=== PATIENT | male | born 1995 | race Caucasian/White ===

== ENCOUNTER 2024-02-20 06:42 | Emergency (ER) | payer SELFPAY ==
[2024-02-20] MEDS ORDERED: CEPHALEXIN 250 MG CAP ONE (07:14)
[2024-02-20] MEDS ORDERED: SMZ./TMP. 800/160 MG TABLET ONE (07:15)
--- NOTE | 2024-02-20 07:17 | EDPHYS ---
Physician Documentation [facility] Name: Hebert Hebert Age: 29 yrs Sex: Male : 1995 Arrival Date: 02/20/2024 Time: 06:42 Bed 5 Private MD: ED Physician Regis Jackson HPI: 02/19 06:48 This 29 yrs old Male presents to ER via Unassigned with complaints of Facial sp4 Swelling, Eye Swelling. 07:14 The patient presents with cellulitis of the left eye, the patient presents with a rn swollen area of the left eye. Onset: The symptoms/episode began/occurred yesterday. Associated signs and symptoms: Pertinent positives: erythema, swelling, Pertinent negatives: fever. Severity of symptoms: At their worst the symptoms were moderate, in the emergency department the symptoms are unchanged. The patient has not experienced similar symptoms in the past. Patient reports left eye swelling and redness that began yesterday, progressed this morning. No fever. No trauma or damage. Not splashed by any chemical. Denies any vision changes. Has never happened before. No rash elsewhere.. Historical: - Allergies: 07:03 No Known Allergies; ss - Home Meds: 07:03 None [Active]; ss - PMHx: 07:03 None; ss - PSHx: 07:03 None; ss - Immunization history:: Client reports having NOT received the Covid vaccine. - Infectious Disease History:: Denies. - Social history:: Smoking status: Patient denies any tobacco usage or history of. - Family history:: not pertinent. - Hospitalizations: : No recent hospitalization is reported. ROS: 07:14 Constitutional: Negative for fever, chills, and weight loss, Eyes: Positive for left rn periorbital rash Skin: No urticaria elsewhere Exam: 07:14 Constitutional: This is a well developed, well nourished patient who is awake, alert, rn and in no acute distress. Head/Face: Normocephalic, atraumatic. Eyes: Pupils equal round and reactive to light, extra-ocular motions intact. Sclera normal. No foreign body. Left periorbital area with erythema and maculopapular rash with warmth. Vital Signs: 07:01 BP 134 / 84; Pulse 80; Resp 16; Temp 98(TE); Pulse Ox 98% on R/A; Weight 108.86 kg; ss Height 5 ft. 9 in. ; Pain 0/10; 07:01 Body Mass Index 35.44 (108.86 kg, 175.26 cm) ss 07:01 Pain Scale: Adult ss MDM: 07:00 Patient medically screened. rn 07:14 Differential diagnosis: cellulitis. Data reviewed: vital signs, nurses notes, and as a rn result, I will discharge patient. Counseling: I had a detailed discussion with the patient and/or guardian regarding the historical points, exam findings, and any diagnostic results supporting the discharge/admit diagnosis, the need for outpatient follow up, to return to the emergency department if symptoms worsen or persist or if there are any questions or concerns that arise at home. Special discussion: I discussed with the patient/guardian in detail that at this point there is no indication for admission to the hospital. It is understood, however, that if the symptoms persist or worsen the patient needs to return immediately for re-evaluation. Administered Medications: 07:17 Drug: Trimethoprim-Sulfamethoxazole PO (160 mg-800 mg (DS) 1 tablet PO once Route: PO; ap3 07:33 Follow up: Response: No adverse reaction ap3 07:17 Drug: Cephalexin PO 500 mg PO once Route: PO; ap3 07:33 Follow up: Response: No adverse reaction ap3 Disposition Summary: 02/20/24 07:17 Discharge Ordered Notes: Location: Home rn Problem: new rn Symptoms: are unchanged rn Condition: Stable rn Diagnosis - Cellulitis of face rn Followup: rn - With: Private Physician - When: As needed - Reason: Recheck today's complaints, Re-evaluation by your physician Discharge Instructions: - Discharge Summary Sheet rn - Cellulitis, Adult rn Forms: - Medication Reconciliation Form rn - Antibiotic internet webmaster - Prescription Opioid Use rn - Patient Portal Instructions rn - Leadership Thank You Letter rn Prescriptions: - Cephalexin 500 mg Oral Capsule - take 1 capsule ORAL route every 12 hours for 10 days; 20 capsule; Refills: 0, rn Product Selection Permitted - Bactrim DS 800-160 mg Oral Tablet - take 1 tablet ORAL route every 12 hours for 10 days; 20 tablet; Refills: 0, rn Product Selection Permitted Signatures: Regis Jackson MD MD rn Blanchard, Shelby, RN RN ss Prokisch, Amanda, RN RN ap3 Ryan Flynn, MD sp4
--- NOTE | 2024-02-20 07:17 | ER ---
Nurse's Notes [facility] Name: Hebert Hebert Age: 29 yrs Sex: Male : 1995 Arrival Date: 02/20/2024 Time: 06:42 Bed 5 Private MD: Diagnosis: Cellulitis of face Presentation: 02/19 07:01 Chief complaint: Patient states: redness and swelling to L eye that began yesterday. ss Worse this morning. Denies fever or injury. Coronavirus screen: Client denies travel out of the [place] in the last 14 days. Ebola Screen: Patient denies exposure to infectious person. Patient denies travel to an Ebola-affected area in the 21 days before illness onset. Initial Sepsis Screen: Does the patient meet any 2 criteria? No. Patient's initial sepsis screen is negative. Does the patient have a suspected source of infection? No. Patient's initial sepsis screen is negative. Risk Assessment: Do you want to hurt yourself or someone else? Patient reports no desire to harm self or others. Onset of symptoms was February 19, 2024. 07:01 Method Of Arrival: Ambulatory ss 07:01 Acuity: JAIME 3 ss Triage Assessment: 07:03 General: Appears in no apparent distress. comfortable, Behavior is calm, cooperative. ss General: Denies fever. Pain: Denies pain. EENT: redness and swelling to L eye. Neuro: Level of Consciousness is awake, alert, obeys commands, Oriented to person, place, time, situation. Respiratory: Airway is patent Respiratory effort is even, unlabored, Respiratory pattern is regular, symmetrical. Derm: Skin is intact, is healthy with good turgor, Skin is dry, Skin is pink, warm \T\ dry. normal. Historical: - Allergies: 07:03 No Known Allergies; ss - Home Meds: 07:03 None [Active]; ss - PMHx: 07:03 None; ss - PSHx: 07:03 None; ss - Immunization history:: Client reports having NOT received the Covid vaccine. - Infectious Disease History:: Denies. - Social history:: Smoking status: Patient denies any tobacco usage or history of. - Family history:: not pertinent. - Hospitalizations: : No recent hospitalization is reported. Screenin:19 [facility] ED Fall Risk Assessment (Adult) History of falling in the last 3 months, ap3 including since admission No falls in past 3 months (0 pts) Confusion or Disorientation No (0 pts) Intoxicated or Sedated No (0 pts) Impaired Gait No (0 pts) Mobility Assist Device Used No (0 pt) Altered Elimination No (0 pt) Score/Fall Risk Level 0 - 2 = Low Risk Oriented to surroundings, Maintained a safe environment, Educated pt \T\ family on fall prevention, incl call for assistance when getting out of bed, Assessed \T\ reinforced patient's understanding of fall precautions, Provided non-skid footwear, Hourly rounding (assess needs \T\ fall precautionary measures) done, Used ambulatory aids as needed (educated on \T\ assisted with), Used gait belt as appropriate. Abuse screen: Denies threats or abuse. Nutritional screening: No deficits noted. Tuberculosis screening: No symptoms or risk factors identified. Assessment: 07:18 General: Appears in no apparent distress. Behavior is calm, cooperative. Pain: ap3 Complains of pain in left eye. Neuro: Level of Consciousness is awake, alert, obeys commands, Oriented to person, place, time, situation, Appropriate for age. Cardiovascular: Patient's skin is warm and dry. Respiratory: Airway is patent Respiratory effort is even, unlabored, Respiratory pattern is regular, symmetrical. Derm: swelling and redness to the left eye. Vital Signs: 07:01 BP 134 / 84; Pulse 80; Resp 16; Temp 98(TE); Pulse Ox 98% on R/A; Weight 108.86 kg; ss Height 5 ft. 9 in. ; Pain 0/10; 07:01 Body Mass Index 35.44 (108.86 kg, 175.26 cm) ss 07:01 Pain Scale: Adult ss ED Course: 06:46 Patient arrived in ED. gm2 06:48 Ryan Flynn MD is Attending Physician. sp4 06:57 Isha Schmitz, RN is Primary Nurse. kd3 06:59 Attending Physician role handed off by Ryan Flynn MD rn 06:59 Regis Jackson MD is Attending Physician. rn 07:03 Triage completed. ss 07:03 Arm band placed on right wrist. ss 07:19 Patient has correct armband on for positive identification. Bed in low position. Call ap3 light in reach. Side rails up X 1. Adult w/ patient. Provided Education on: medications prior to administration. Pulse ox on. NIBP on. 07:19 No provider procedures requiring assistance completed. Patient did not have IV access ap3 during this emergency room visit. Administered Medications: 07:17 Drug: Trimethoprim-Sulfamethoxazole PO (160 mg-800 mg (DS) 1 tablet PO once Route: PO; ap3 07:33 Follow up: Response: No adverse reaction ap3 07:17 Drug: Cephalexin PO 500 mg PO once Route: PO; ap3 07:33 Follow up: Response: No adverse reaction ap3 Medication: 07:20 VIS not applicable for this client. ap3 Outcome: :17 Discharge ordered by . rn 07:19 Condition: good ap3 07:32 Discharged to home ambulatory, ap3 07:32 Discharge instructions given to patient, Instructed on discharge instructions, follow up and referral plans. medication usage, Demonstrated understanding of instructions, follow-up care, medications, Prescriptions given X 2, 07:33 Patient left the ED. ap3 Signatures: Regis Jackson MD MD rn Blanchard, Shelby, RN RN Beti Voss RN RN ap3 Isha Schmitz RN RN kd3 Ryan Flynn MD MD sp4 Anuradha Malone 2
[2024-02-20 07:47] VITALS: BP 134/84; TEMP 98; O2SAT 98
== END 2024-02-20 07:33 | disposition home or self-care (01) ==
LOC: ER 06:42
DX: L03.211 Cellulitis of face (principal)
CPT/HCPCS: 99283

== ENCOUNTER 2025-06-08 06:23 | Emergency (ER) | payer SELFPAY ==
[2025-06-08] MEDS ORDERED: predniSONE 20 MG TAB ONE (06:45)
[2025-06-08] MEDS ORDERED: BACI/NEOMYCIN/POLY OINT 15GM TOP ONE (06:45)
[2025-06-08] MEDS ORDERED: DIPHENHYDRAMINE 25 MG TAB/CAP ONE (06:45)
[2025-06-08] MEDS ORDERED: FAMOTIDINE 20 MG TAB ONE (06:46)
--- NOTE | 2025-06-08 06:50 | EDPHYS ---
Physician Documentation [facility] Name: Hebert Hebert Age: 30 yrs Sex: Male : 1995 Arrival Date: 06/08/2025 Time: 06:23 Bed 16 Private MD: ED Physician Jose Hughes HPI: 06/08 06:36 This 30 yrs old Male presents to ER via Unassigned with complaints of Eye melchor Swelling, Rash. 06:36 The patient is experiencing burning, pain, redness, The patient sustained contact melchor dermatitis Periorbital. Onset: The symptoms/episode began/occurred 3 day(s) ago. Duration: the symptoms are continuous. Aggravated by pressure, rubbing, Alleviated by cold application. Associated signs and symptoms: Pertinent positives:. Patient does not utilize any form of vision correction. Severity of symptoms: At their worst the symptoms were mild in the emergency department the symptoms are unchanged. The patient has not experienced similar symptoms in the past. Historical: - Allergies: 06:39 No Known Allergies; br2 - PMHx: 06:39 None; br2 - PSHx: 06:39 None; br2 - Immunization history:: Adult Immunizations up to date. - Infectious Disease History:: Denies. - Social history:: Smoking status: Patient denies any tobacco usage or history of. Patient uses alcohol, occasionally. Patient/guardian denies using street drugs. ROS: 06:42 Constitutional: Negative for fever, chills, and weight loss, Eyes: Negative for injury, melchor pain, redness, and discharge, ENT: Negative for injury, pain, and discharge, Neck: Negative for injury, pain, and swelling, Cardiovascular: Negative for chest pain, palpitations, and edema, Respiratory: Negative for shortness of breath, cough, wheezing, and pleuritic chest pain, Abdomen/GI: Negative for abdominal pain, nausea, vomiting, diarrhea, and constipation, Back: Negative for injury and pain, : Negative for injury, bleeding, discharge, and swelling, MS/Extremity: Negative for injury and deformity, Neuro: Negative for headache, weakness, numbness, tingling, and seizure, Psych: Negative for depression, anxiety, suicide ideation, homicidal ideation, and hallucinations, Allergy/Immunology: Negative for hives, rash, and allergies, Endocrine: Negative for neck swelling, polydipsia, polyuria, polyphagia, and marked weight changes, Hematologic/Lymphatic: Negative for swollen nodes, abnormal bleeding, and unusual bruising, 06:42 Skin: Positive for rash, swelling, of the right eye and left eye, Exam: 06:42 Constitutional: This is a well developed, well nourished patient who is awake, alert, melchor and in no acute distress. Eyes: Pupils equal round and reactive to light, extra-ocular motions intact. Lids and lashes normal. Conjunctiva and sclera are non-icteric and not injected. Cornea within normal limits. Periorbital areas with no swelling, redness, or edema. ENT: Nares patent. No nasal discharge, no septal abnormalities noted. Tympanic membranes are normal and external auditory canals are clear. Oropharynx with no redness, swelling, or masses, exudates, or evidence of obstruction, uvula midline. Mucous membranes moist. Neck: Trachea midline, no thyromegaly or masses palpated, and no cervical lymphadenopathy. Supple, full range of motion without nuchal rigidity, or vertebral point tenderness. No Meningismus. Chest/axilla: Normal chest wall appearance and motion. Nontender with no deformity. No lesions are appreciated. Cardiovascular: Regular rate and rhythm with a normal S1 and S2. No gallops, murmurs, or rubs. Normal PMI, no JVD. No pulse deficits. Respiratory: Lungs have equal breath sounds bilaterally, clear to auscultation and percussion. No rales, rhonchi or wheezes noted. No increased work of breathing, no retractions or nasal flaring. Abdomen/GI: Soft, non-tender, with normal bowel sounds. No distension or tympany. No guarding or rebound. No evidence of tenderness throughout. Back: No spinal tenderness. No costovertebral tenderness. Full range of motion. Male : Normal genitalia with no discharge or lesions. MS/ Extremity: Pulses equal, no cyanosis. Neurovascular intact. Full, normal range of motion., bilateral aka Neuro: Awake and alert, GCS 15, oriented to person, place, time, and situation. Cranial nerves II-XII grossly intact. Motor strength 5/5 in all extremities. Sensory grossly intact. Cerebellar exam normal. Normal gait. Psych: Awake, alert, with orientation to person, place and time. Behavior, mood, and affect are within normal limits. 06:42 Head/face: Noted is rash, swelling, Vital Signs: 06:37 BP 147 / 95; Pulse 74; Resp 18; Temp 97.1(TE); Pulse Ox 98% on R/A; Weight 104.33 kg; br2 Height 5 ft. 9 in. ; Pain 2/10; 06:37 Body Mass Index 33.96 (104.33 kg, 175.26 cm) br2 06:37 Pain Scale: Adult br2 MDM: 06:27 Medical Screening Exam initiated [facility] 06:47 Differential diagnosis: allergic reaction. Data reviewed: vital signs, nurses notes. [facility] Consideration of Admission/Observation Escalation of care including admission/observation considered. I considered the following discharge prescriptions or medication management in the emergency department Medications were administered in the Emergency Department. See MAR. Test considered but Not performed: Labs: NO LABS. Historians other than the Patient: PT WELL INFORMED. Care significantly affected by the following chronic conditions: NONE. Administered Medications: 06:49 Drug: Iwdugafi-Rrwkpkmsio-Niwdzzjkr Topical Ointment 1 application Topical once Route: kt5 Topical; Site: affected area; 06:49 Drug: diphenhydrAMINE PO 50 mg PO once Route: PO; kt5 06:50 Drug: predniSONE PO 60 mg PO once Route: PO; kt5 06:50 Drug: Famotidine PO 40 mg PO once Route: PO; kt5 Disposition Summary: 06/08/25 06:50 Discharge Ordered Notes: Location: Home melchor Problem: new melchor Symptoms: have improved melchor Condition: Stable melchor Diagnosis - Dermatitis, unspecified melchor - Allergic contact dermatitis due to plants, except food melchor Followup: melchor - With: Private Physician - When: 2 - 3 days - Reason: Recheck today's complaints, Continuance of care, Re-evaluation by your physician Discharge Instructions: - Discharge Summary Sheet melchor - Contact Dermatitis melhcor - Poison Beckie Dermatitis melchor - Poison Te[place]y Dermatitis melchor - Rash, Adult melchor - Rash, Adult, [id number] [facility] Forms: - Medication Reconciliation Form melchor - Antibiotic Education melchor - Prescription Opioid Use melchor - Patient Portal Instructions [facility] - Leadership Thank You Letter [facility] Prescriptions: - Neosporin (rqa-oul-jitdj) 3.5mg-400 unit- 5,000 unit/gram Topical ointment - apply 1 application TOPICAL route 3 times per day; 15 gram tube; Refills: 0, melchor Product Selection Permitted - Benadryl 25 mg Oral capsule - take 2 capsule ORAL route every 6 hours As needed; 36 tablet; Refills: 0, [facility] Product Selection Permitted - Pepcid 20 mg Oral tablet - take 1 tablet ORAL route every 12 hours for 21 days; 42 tablet; Refills: 0, [facility] Product Selection Permitted - Prednisone 20 mg Oral Tablet - take 2 tablets ORAL route once daily for 5 days; 10 tablet; Refills: 0, Product [facility] Selection Permitted Signatures: Jose Hughes MD MD cha Riddle, Belinda RN RN br2 Angeles Harper RN RN kt5
--- NOTE | 2025-06-08 06:50 | ER ---
Nurse's Notes [facility] Name: Hebert Hebert Age: 30 yrs Sex: Male : 1995 Arrival Date: 06/08/2025 Time: 06:23 Bed 16 Private MD: Diagnosis: Dermatitis, unspecified;Allergic contact dermatitis due to plants, except food Presentation: 06/08 06:37 Chief complaint: Patient states: PT HAS RASH TO FACE AND EYES SWOLLEN, ITCHING PT br2 BELIEVES HE HAS POISON TRINI. Coronavirus screen: Client denies travel out of the [place] in the last 14 days. Ebola Screen: Patient denies exposure to infectious person. Initial Sepsis Screen: Does the patient meet any 2 criteria? No. Patient's initial sepsis screen is negative. Does the patient have a suspected source of infection? No. Patient's initial sepsis screen is negative. Risk Assessment: Do you want to hurt yourself or someone else? Patient reports no desire to harm self or others. Onset of symptoms was June 06, 2025. 06:37 Method Of Arrival: Ambulatory br2 06:37 Acuity: JAIME 5 br2 Triage Assessment: 06:39 General: Appears uncomfortable, Behavior is calm, cooperative. Pain: Complains of pain br2 in face Pain currently is 2 out of 10 on a pain scale. Historical: - Allergies: 06:39 No Known Allergies; br2 - PMHx: 06:39 None; br2 - PSHx: 06:39 None; br2 - Immunization history:: Adult Immunizations up to date. - Infectious Disease History:: Denies. - Social history:: Smoking status: Patient denies any tobacco usage or history of. Patient uses alcohol, occasionally. Patient/guardian denies using street drugs. Screenin:41 [facility] ED Fall Risk Assessment (Adult) History of falling in the last 3 months, kt5 including since admission No falls in past 3 months (0 pts) Confusion or Disorientation No (0 pts) Intoxicated or Sedated No (0 pts) Impaired Gait No (0 pts) Mobility Assist Device Used No (0 pt) Altered Elimination No (0 pt) Score/Fall Risk Level 0 - 2 = Low Risk. Abuse screen: Denies threats or abuse. Nutritional screening: No deficits noted. Tuberculosis screening: No symptoms or risk factors identified. Assessment: 06:41 General: Appears in no apparent distress. comfortable. Pain: Denies pain. Neuro: No kt5 deficits noted. Torres Agitation-Sedation Scale (RASS): 0 - Alert and Calm Level of Consciousness is awake, alert, obeys commands, Oriented to person, place, time, situation. Cardiovascular: No deficits noted. Heart tones S1 S2 Capillary refill < 3 seconds Clubbing of nail beds is absent JVD is absent. Respiratory: No deficits noted. Airway is patent Trachea midline Respiratory effort is even, unlabored, Respiratory pattern is regular, symmetrical, Breath sounds are clear bilaterally. GI: No deficits noted. No signs and/or symptoms were reported involving the gastrointestinal system. Abdomen is round non-distended, Bowel sounds present X 4 quads. : No deficits noted. No signs and/or symptoms were reported regarding the genitourinary system. EENT: No deficits noted. No signs and/or symptoms were reported regarding the EENT system. Derm: Skin is intact, Skin is dry, Skin is pink, warm \T\ dry. Rash noted that is itchy, red, on right eye, left eye and backand bilateral flank area. Musculoskeletal: No deficits noted. No signs and/or symptoms reported regarding the musculoskeletal system. Vital Signs: 06:37 BP 147 / 95; Pulse 74; Resp 18; Temp 97.1(TE); Pulse Ox 98% on R/A; Weight 104.33 kg; br2 Height 5 ft. 9 in. ; Pain 2/10; 06:37 Body Mass Index 33.96 (104.33 kg, 175.26 cm) br2 06:37 Pain Scale: Adult br2 ED Course: 06:27 Patient arrived in ED. gm2 06:27 Jose Hughes MD is Attending Physician. melchor 06:39 Triage completed. br2 06:39 Arm band placed on right wrist. br2 06:41 Bed in low position. Call light in reach. Side rails up X 1. Client placed on kt5 continuous cardiac and pulse oximetry monitoring. NIBP monitoring applied. Door closed. Noise minimized. Pillow given. 06:41 No provider procedures requiring assistance completed. kt5 07:19 Mine James RN is Primary Nurse. af3 07:19 Patient did not have IV access during this emergency room visit. af3 Administered Medications: 06:49 Drug: Hxixqdam-Lxyjiadubv-Aswrqohuh Topical Ointment 1 application Topical once Route: kt5 Topical; Site: affected area; 06:49 Drug: diphenhydrAMINE PO 50 mg PO once Route: PO; kt5 06:50 Drug: predniSONE PO 60 mg PO once Route: PO; kt5 06:50 Drug: Famotidine PO 40 mg PO once Route: PO; kt5 Medication: 06:41 VIS not applicable for this client. kt5 Outcome: 06:50 Discharge ordered by . melchor 07:19 Discharged to home ambulatory, af3 07:19 Condition: stable 07:19 Discharge instructions given to patient, Instructed on discharge instructions, follow up and referral plans. medication usage, Demonstrated understanding of instructions, follow-up care, medications, Prescriptions given X 4, :19 Patient left the ED. af3 Signatures: Jose Hughes MD MD cha Mitchell, Ginger gm2 Elvia Sharpe RN RN br2 Mine James RN RN af3 Angeles Harper RN RN kt5
[2025-06-08 07:24] VITALS: BP 147/95; TEMP 97.1; O2SAT 98
== END 2025-06-08 07:19 | disposition home or self-care (01) ==
LOC: ER 06:23
DX: L23.7 Allergic contact dermatitis due to plants, except food (principal)
CPT/HCPCS: 99283; J7512